=== PATIENT | male | born 1970 | race Caucasian/White ===

== ENCOUNTER 2023-05-14 17:33 | Emergency (ER) | payer SELFPAY ==
[~2023-05-14] VITALS: Ht 170.2 cm; Wt 73.0 kg
[2023-05-14 17:44] VITALS: BP 148/66; PULSE 78; RESP 16; TEMP 99.7; O2SAT 98
[2023-05-14 20:09] LABS: BASOPHILS % 0.5 % (0.0-2.0); EOSINOPHILS % 0.7 % (0.0-5.0); HEMATOCRIT. 25.7 % (42.0-52.0); HEMOGLOBIN. 8.3 g/dL (14.0-18.0); MEAN CORPUSCULAR HEMOGLOBIN 30.1 pg (28.0-32.0); MEAN CORPUSCULAR HGB CONC 32.5 g/dL (31.0-37.0); MEAN CORPUSCULAR VOLUME 92.9 fL (80.0-94.0); MEAN PLATELET VOLUME 8.1 fl (7.4-10.4); MONOCYTES % 7.2 % (2.0-8.0); NEUTROPHILS % 80.6 % (40.0-76.0); PLATELET 408 x1000/uL (130-400); RED BLOOD CELL COUNT 2.77 mill/uL (4.7-6.1); RED CELL DISTRIBUTION WIDTH 16.2 % (11.6-14.6); WHITE BLOOD COUNT 9.5 x1000/uL (4.5-11.0)
[2023-05-14 20:21] LABS: ALANINE AMINOTRANSFERASE 112 IU/L (10-49); ALBUMIN 3.7 g/dL (3.2-4.8); ASPARTATE AMINOTRANSFERASE 52 IU/L (<34); BILIRUBIN TOTAL 0.3 mg/dL (0.1-1.0); CALCIUM 7.6 mg/dL (8.7-10.4); CARBON DIOXIDE 32 mEq/L (21-32); CHLORIDE 96 mEq/L (98-107); GLUCOSE 95 mg/dL (70-105); POTASSIUM 4.1 mEq/L (3.5-5.1); PROTEIN TOTAL 6.5 g/dL (6.0-8.3); SODIUM 136 mEq/L (136-145); UREA NITROGEN BLOOD 35 mg/dL (9-23)
== END 2023-05-14 23:08 | disposition home or self-care (01) ==
LOC: ER 17:33
DX: M25.512 Pain in left shoulder (principal); I12.0 Hypertensive chronic kidney disease with stage 5 chronic kidney disease or end stage renal disease; E11.9 Type 2 diabetes mellitus without complications; Z98.890 Other specified postprocedural states; Z99.2 Dependence on renal dialysis; W18.39XA Other fall on same level, initial encounter; Y93.89 Activity, other specified; Y92.89 Other specified places as the place of occurrence of the external cause; Y99.8 Other external cause status
CPT/HCPCS: 36415; 73030; 80053; 85025; 99284

== ENCOUNTER 2023-05-26 11:53 | Emergency (ER) | payer SELFPAY ==
[~2023-05-26] VITALS: Ht 170.2 cm; Wt 69.0 kg
[2023-05-26 11:59] VITALS: O2SAT 96
[2023-05-26] MEDS ORDERED: ACETAMINOPHEN 325MG TABLET PO ONE (13:15)
[2023-05-26] MEDS ORDERED: TOPUD MT (16:05)
[2023-05-26] MEDS ORDERED: LIDO700A15 TP (16:05)
[2023-05-26 17:14] VITALS: BP 137/84; PULSE 84; RESP 16; TEMP 98
== END 2023-05-26 17:21 | disposition home or self-care (01) ==
LOC: ER 12:49
DX: S32.301A Unspecified fracture of right ilium, initial encounter for closed fracture (principal); S22.31XA Fracture of one rib, right side, initial encounter for closed fracture; E11.9 Type 2 diabetes mellitus without complications; N18.9 Chronic kidney disease, unspecified; I12.0 Hypertensive chronic kidney disease with stage 5 chronic kidney disease or end stage renal disease; Z99.2 Dependence on renal dialysis; Z98.890 Other specified postprocedural states; W01.10XA Fall on same level from slipping, tripping and stumbling with subsequent striking against unspecified object, initial encounter; Y93.89 Activity, other specified; Y92.89 Other specified places as the place of occurrence of the external cause; Y99.8 Other external cause status
CPT/HCPCS: 71101; 73502; 99284